=== PATIENT | male | born 1995 | race Caucasian/White ===

== ENCOUNTER 2017-06-07 02:40 | Emergency (ER) | payer OTHER ==
[~2017-06-07] VITALS: Ht 180.3 cm; Wt 108.4 kg
[2017-06-07 03:00] VITALS: BP_SYST 146
[2017-06-07] MEDS ORDERED: NITROGLYCERIN 0.4 MG TAB.SUBL SL ONE (06:30)
[2017-06-07 07:00] VITALS: BP_SYST 146
== END 2017-06-07 07:00 | disposition home or self-care (01) ==
LOC: SED 02:40
DX: F45.8 Other somatoform disorders (principal); R07.0 Pain in throat
CPT/HCPCS: 70360-TC; 70490; 71010; 99284

== ENCOUNTER 2017-12-23 00:23 | Emergency (ER) | payer OTHER, MEDICAID ==
[~2017-12-23] VITALS: Ht 180.3 cm; Wt 111.1 kg
[2017-12-23 00:30] VITALS: BP_SYST 137
--- NOTE | 2017-12-23 00:30 | NUR ---
Placed in room 6 . Placed on supervisor [employer], blood pressure machine and pulse oximeter. To gown for exam. Side rails up. Report given by Bonita SANDOVAL to Jose Francisco SANDOVAL.
--- NOTE | 2017-12-23 00:31 | NUR ---
Patient AAOx4, ambulatory. Patient states having difficulty breathing for approximately 4 days prior to ER visit. Patient states he has been "using an inhaler but does not get any relief". Patient denies chest pain at this time. Patient denies any other complaints.
--- NOTE | 2017-12-23 00:52 | NUR ---
ER Dr. Andrews at bedside examining patient.
[2017-12-23] MEDS ORDERED: IPRATROPIUM/ALBUTEROL SULFATE 3 ML AMPUL.NEB INH ONE (01:00)
--- NOTE | 2017-12-23 01:00 | NUR ---
RT at bedside for breathing treatment.
[2017-12-23 02:36] VITALS: BP_SYST 134
--- NOTE | 2017-12-23 02:36 | NUR ---
Patient given written and verbal discharge instructions and verbalizes understanding. ER MD discussed with patient the results and treatment provided. Patient in stable condition. ID arm band removed. Rx of proair and ibuprofen given. Patient educated on pain management and to follow up with PMD. Pain Scale 0/10. Opportunity for questions provided and answered. Medication side effect fact sheet provided.
== END 2017-12-23 02:36 | disposition home or self-care (01) ==
LOC: SED 00:23
DX: J45.901 Unspecified asthma with (acute) exacerbation (principal); Z90.89 Acquired absence of other organs
CPT/HCPCS: 94640; 99283

== ENCOUNTER 2018-06-25 08:04 | Emergency (ER) | payer MEDICAID, OTHER ==
[~2018-06-25] VITALS: Ht 180.3 cm; Wt 116.6 kg
[2018-06-25 08:05] VITALS: BP_SYST 130
[2018-06-25] MEDS ORDERED: IBUPROFEN 800 MG TABLET PO ONE (08:45)
[2018-06-25 09:20] VITALS: BP_SYST 122
== END 2018-06-25 09:20 | disposition home or self-care (01) ==
LOC: SED 08:04
DX: S20.211A Contusion of right front wall of thorax, initial encounter (principal); R03.0 Elevated blood-pressure reading, without diagnosis of hypertension; J45.909 Unspecified asthma, uncomplicated; W50.1XXA Accidental kick by another person, initial encounter; Y93.89 Activity, other specified; Y92.89 Other specified places as the place of occurrence of the external cause; Y99.8 Other external cause status
CPT/HCPCS: 71045; 71100; 99284